=== PATIENT | female | born 1970 | race Two or more races ===

== ENCOUNTER 2018-01-16 21:36 | Emergency (ER) | payer SELFPAY ==
[2018-01-16] MEDS ORDERED: LIDOCAINE 1% MPF 5 ML VIAL ONE (21:50)
--- NOTE | 2018-01-16 22:05 | ER ---
Nurse's Notes [facility] Name: Yuly Hernández Age: 47 yrs Sex: Female : 1970 Arrival Date: 01/16/2018 Time: 21:39 Bed 5 Private MD: Diagnosis: Left hand foreign body, fish hook Presentation: 01/16 21:51 Presenting complaint: Patient states: Fish hook to left hand first knuckle just DEBUBBLIZER; lp1 not actively bleeding. Transition of care: patient was not received from another setting of care. Onset of symptoms was January 16, 2018. Risk Assessment: Do you want to hurt yourself or someone else? Patient reports no desire to harm self or others. Initial Sepsis Screen: Does the patient meet any 2 criteria? No. Patient's initial sepsis screen is negative. Does the patient have a suspected source of infection? No. Patient's initial sepsis screen is negative. Care prior to arrival: None. 21:51 Method Of Arrival: Ambulatory lp1 21:51 Acuity: MOY 4 lp1 Historical: - Allergies: 21:55 No Known Allergies; lp1 - Home Meds: 21:55 None [Active]; lp1 - PMHx: 21:55 None; lp1 - PSHx: 21:55 None; lp1 - Immunization history:: Adult Immunizations up to date, Last tetanus immunization: unknown. - Family history:: not pertinent. - Social history:: Smoking status: Patient/guardian denies using tobacco. - Ebola Screening: : No symptoms or risks identified at this time. - Hospitalizations: : No recent hospitalization is reported. Screenin:54 Abuse screen: Denies threats or abuse. Denies injuries from another. Nutritional lp1 screening: No deficits noted. Tuberculosis screening: No symptoms or risk factors identified. Fall Risk None identified. Assessment: 21:55 General: Appears in no apparent distress. Behavior is calm, cooperative, appropriate lp1 for age. Pain: Complains of pain in dorsal aspect of proximal phalanx of left index finger Pain currently is 3 out of 10 on a pain scale. Quality of pain is described as aching. Neuro: Level of Consciousness is awake, alert, obeys commands. Cardiovascular: No deficits noted. Respiratory: No deficits noted. GI: No deficits noted. : No deficits noted. EENT: No deficits noted. Derm: Foreign body noted to left first knuckle, fish hook in place; not actively bleeding. Musculoskeletal: Circulation, motion, and sensation intact. Capillary refill < 3 seconds, in left fingers. Vital Signs: 21:53 BP 140 / 94; Pulse 82; Resp 16; Temp 98.4(O); Pulse Ox 99% on R/A; Weight 54.43 kg; lp1 Height 5 ft. 3 in. (160.02 cm); Pain 2/10; 21:53 Body Mass Index 21.26 (54.43 kg, 160.02 cm) lp1 ED Course: 21:39 Patient arrived in ED. rg4 21:43 Nicola Amanda MD is Attending Physician. rn 21:51 Rita Liao RN is Primary Nurse. lp1 21:53 Triage completed. lp1 21:53 Arm band placed on right wrist. lp1 21:54 Patient has correct armband on for positive identification. lp1 21:57 Patient did not have IV access during this emergency room visit. lp1 22:11 Assist provider with foreign body removal of a fish hook from left hand, first knuckle lp1 Set up for procedure. Performed by Nicola Amanda MD. 22:27 Wound care: to puncture located on dorsal aspect of proximal phalanx of left index lp1 finger was dressed with band aid, Scrubbed with Chlorhexidine scrub brush. Administered Medications: 21:57 Drug: Lidocaine (1 %) 1 vials Volume: 5 ml; Route: Infiltration; lp1 22:20 Drug: Tetanus-Diphtheria Toxoid Adult 0.5 ml {Met[employer]: [email or web address]. Exp: lp1 03/04/2020. Lot #: [id number]. } Route: IM; Site: left deltoid; 22:27 Follow up: Response: Medication administered at discharge. lp1 Outcome: 22:05 Discharge ordered by . rn 22:28 Discharged to home ambulatory, with significant other. lp1 22:28 Condition: good 22:28 Discharge instructions given to patient, significant other, Instructed on discharge instructions, follow up and referral plans. medication usage, wound care, Demonstrated understanding of instructions, follow-up care, medications, wound care, Prescriptions given X 1. 22:29 Patient left the ED. lp1 Signatures: Nicola Amanda MD MD rn Pena, Laura, RN RN lp1 J Carlos, Tana rg4
--- NOTE | 2018-01-16 22:05 | EDPHYS ---
Physician Documentation [facility] Name: Yuly Hernández Age: 47 yrs Sex: Female : 1970 Arrival Date: 01/16/2018 Time: 21:39 Bed 5 Private MD: ED Physician Nicola Amanda HPI: 01/16 21:47 This 47 yrs old Female presents to ER via Unassigned with complaints of FISH HOOK rn IN HAND. 21:47 The patient or guardian reports the patient has a suspected foreign body, of the left rn hand. The reported likely foreign body is a fishhook. Onset: The symptoms/episode began/occurred just prior to arrival. Current symptoms: foreign body sensation. The patient has not experienced similar symptoms in the past. Accidental fishhook stuck in left hand, FROM, snipped back end of hook, no other complications, no numbness or weakness of hand.. Historical: - Allergies: 21:55 No Known Allergies; lp1 - Home Meds: 21:55 None [Active]; lp1 - PMHx: 21:55 None; lp1 - PSHx: 21:55 None; lp1 - Immunization history:: Adult Immunizations up to date, Last tetanus immunization: unknown. - Family history:: not pertinent. - Social history:: Smoking status: Patient/guardian denies using tobacco. - Ebola Screening: : No symptoms or risks identified at this time. - Hospitalizations: : No recent hospitalization is reported. ROS: 21:47 Constitutional: Negative for fever, chills, and weight loss, MS/Extremity: + fishhook rn in left hand Exam: 21:47 MS/ Extremity: Pulses equal, no cyanosis. Neurovascular intact. Full, normal range rn of motion. + fishhook left hand, just lateral to 2nd MCP, approx 0.5 cm of hook visible, tip of hook palpable under skin, direction hook travels appears lateral to and not involving joint. Vital Signs: 21:53 BP 140 / 94; Pulse 82; Resp 16; Temp 98.4(O); Pulse Ox 99% on R/A; Weight 54.43 kg; lp1 Height 5 ft. 3 in. (160.02 cm); Pain 2/10; 21:53 Body Mass Index 21.26 (54.43 kg, 160.02 cm) lp1 Procedures: 22:03 Foreign Body Removal: a fishhook, from the left left hand, by using a hemostat, rn incising to remove, Dressing: bandaid, The patient tolerated the removal well. MDM: 21:43 Patient medically screened. rn 22:03 Data reviewed: vital signs, nurses notes, and as a result, I will discharge patient. rn Counseling: I had a detailed discussion with the patient and/or guardian regarding: the historical points, exam findings, and any diagnostic results supporting the discharge/admit diagnosis, the need for outpatient follow up, to return to the emergency department if symptoms worsen or persist or if there are any questions or concerns that arise at home. Response to treatment: the patient's symptoms have resolved after treatment, and as a result, I will discharge patient. Special discussion: I discussed with the patient/guardian in detail that at this point there is no indication for admission to the hospital. It is understood, however, that if the symptoms persist or worsen the patient needs to return immediately for re-evaluation. 01/16 22:03 Order name: Wound Care; Complete Time: 22:27 rn 01/16 22:03 Order name: Wound dressing; Complete Time: 22:27 rn Administered Medications: 21:57 Drug: Lidocaine (1 %) 1 vials Volume: 5 ml; Route: Infiltration; lp1 22:20 Drug: Tetanus-Diphtheria Toxoid Adult 0.5 ml {[employer]: [employer]. Exp: lp1 03/04/2020. Lot #: [id number]. } Route: IM; Site: left deltoid; 22:27 Follow up: Response: Medication administered at discharge. lp1 Disposition: 01/16/18 22:05 Discharged to Home. Impression: Left hand foreign body, fish hook. - Condition is Stable. - Discharge Instructions: Foreign Body. - Prescriptions for Doxycycline Monohydrate 100 mg Oral Tablet - take 1 tablet by ORAL route every 12 hours for 10 days; 20 tablet. - Medication Reconciliation Form, Thank You Letter, Antibiotic Education, Prescription Opioid Use form. - Follow up: Private Physician; When: As needed; Reason: Recheck today's complaints, Re-evaluation by your physician. - Problem is new. - Symptoms are resolved. Signatures: Nicola Amanda MD MD rn Pena, Laura, RN RN lp1 Corrections: (The following items were deleted from the chart) 21:49 21:47 Constitutional: Negative for fever, chills, and weight loss, MS/Extremity: + rn fishhook left hand, just lateral to 2nd MCP, approx 0.5 cm of hook visible, tip of hook palpable under skin, direction hook travels appears lateral to and not involving joint. rn 21:50 21:47 Constitutional: Negative for fever, chills, and weight loss, MS/Extremity: + rn fishhook left hand, just lateral to 2nd MCP, approx 0.5 cm of hook visible, tip of hook palpable under skin, direction hook travels appears lateral to and not involving joint. rn 22:29 22:05 01/16/2018 22:05 Discharged to Home. Impression: Left hand foreign body, fish lp1 hook. Condition is Stable. Forms are Medication Reconciliation Form, Thank You Letter, Antibiotic Education, Prescription Opioid Use. Follow up: Private Physician; When: As needed; Reason: Recheck today's complaints, Re-evaluation by your physician. Problem is new. Symptoms are resolved. rn
[2018-01-16] MEDS ORDERED: TETANUS & DIPHTHERIA TOX,ADULT 0.5 ML VIAL ONE (22:17)
== END 2018-01-16 22:29 | disposition home or self-care (01) ==
LOC: ER 21:36
PROC: 0JCK3ZZ Extirpation of Matter from Left Hand Subcutaneous Tissue and Fascia, Percutaneous Approach (ICD-10-PCS; principal; 2018-01-16)
DX: S61.442A Puncture wound with foreign body of left hand, initial encounter (principal); Z23 Encounter for immunization
CPT/HCPCS: 90714; 99284